=== PATIENT | male | born 1945 | race Caucasian/White ===

== ENCOUNTER 2020-02-04 08:04 | Emergency (ER) | payer MEDICARE, OTHER ==
[2020-02-04 08:16] VITALS: BP 147/85
--- NOTE | 2020-02-04 08:19 | ED Physician Documentation ---
PD HPI URI - Stated complaint Stated Complaint: SOA/COUGH - Chief complaint Chief Complaint: Heent - History obtained from History obtained from: Patient - History of Present Illness Timing - onset: How many days ago (10) Timing duration: Days (10) Timing details: Gradual onset, Still present Associated symptoms: Nasal congestion, Rhinorrhea, Productive cough. No: Fever, Chills Contributing factors: Other (Visiting from [place] the patient is staying with his son who is in the here. He states that he is really gone out at any restaurants in the past 2 weeks 3 weeks ago he did go to a home show in [place]. He has not had fever with this.) Improves by: Rest, Medication Worsened by: Activity Similar symptoms before: Diagnosis (bronchitis) Recently seen: Not recently seen - Additional information Additional information: 74-year-old male visiting from [place] has developed a cough and congestion and he usually takes an antibiotic when this happens and improves. He states that usually does take antibiotic to resolve this. He does have some mild muffled hearing. Review of Systems Constitutional: denies: Fever, Chills, Myalgias Eyes: denies: Decreased vision Ears: reports: Loss of hearing. denies: Ear pain Nose: reports: Rhinorrhea / runny nose, Congestion Throat: denies: Sore throat Cardiac: denies: Chest pain / pressure, Palpitations Respiratory: reports: Dyspnea, Cough GI: denies: Vomiting, Diarrhea PD PAST MEDICAL HISTORY - Present Medications Home Medications: Ambulatory Orders Medication Instructions Recorded Confirmed Azithromycin [Zithromax] 250 mg PO DAILY #6 tablet 02/04/20 - Allergies Allergies/Adverse Reactions: Allergies Allergy/AdvReac Type Severity Reaction Status Date / Time No Known Drug Allergies Allergy Verified 02/04/20 08:13 PD ED PE NORMAL - Vitals Vital signs reviewed: Yes (hypertensive ) - General General: Alert and oriented X 3, No acute distress, Well developed/nourished, Other (wearing a cough mask) - HEENT HEENT: Atraumatic, PERRL, EOMI, Moist mucous membranes, Pharynx benign, Other (both TM's are inflamed along the umbo with rounding of the umbo) - Neck Neck: Supple, no meningeal sign, No bony TTP, No JVD - Cardiac Cardiac: RRR, No murmur - Respiratory Respiratory: No respiratory distress, Clear bilaterally - Abdomen Abdomen: Soft, Non tender - Back Back: No CVA TTP, No spinal TTP - Derm Derm: Normal color, Warm and dry, No rash - Extremities Extremities: No deformity, No edema, No calf tenderness / cord - Neuro Neuro: Alert and oriented X 3, public relations professional 2-12 intact, No motor deficit, No sensory deficit, Normal speech Eye Opening: Spontaneous Motor: Obeys Commands Verbal: Oriented GCS Score: 15 - Psych Psych: Normal mood, Normal affect Results - Vitals Vitals: Vital Signs - 24 hr 02/04/20 08:13 Temperature 37.2 C Heart Rate 66 Respiratory 17 Rate Blood Pressure 147/85 H O2 Saturation 97 Oxygen O2 Source Room air PD MEDICAL DECISION MAKING - ED course Complexity details: considered differential, d/w patient ED course: 74-year-old male visiting from [place] with a cough and congestion has mild illness he does have otitis on examination with some muffled hearing as well. He is administered dexamethasone 10 mg orally we will place him on some azithromycin. We are expecting resolution. I did not think that this patient had coronavirus based on lack of hypoxia and fever. Lung exam was unremarkable. He did have alternative diagnosis to explain his symptoms. Departure - Departure Disposition: 01 Home, Self Care Clinical Impression: Otitis media Qualifiers: Otitis media type: suppurative Chronicity: acute Laterality: bilateral Recurrence: non-recurrent Spontaneous tympanic membrane rupture: without spontaneous rupture Qualified Code(s): H66.003 - Acute suppurative otitis media without spontaneous rupture of ear drum, bilateral Instructions: ED Otitis Media Acute Adult Follow-Up: Your, doctor [Other] Prescriptions: Azithromycin [Zithromax] 250 mg PO DAILY #6 tablet
[2020-02-04] MEDS ORDERED: CHERRY SYRUP 10 ML UDC PO ONE (08:27)
[2020-02-04] MEDS ORDERED: DEXAMETHASONE 10 MG/ML VIAL PO STA (08:27)
== END 2020-02-04 08:45 | disposition home or self-care (01) ==
LOC: ED 08:04
DX: H66.003 Acute suppurative otitis media without spontaneous rupture of ear drum, bilateral (principal)
CPT/HCPCS: 99282; 99284; A9270

== ENCOUNTER 2020-02-10 16:22 | Emergency (ER) | payer MEDICARE, OTHER ==
[2020-02-10 16:47] LABS: BILIRUBIN,URINE NEGATIVE (NEGATIVE); CLARITY,URINE CLEAR (CLEAR); GLUCOSE, URINE (UA) >=1000 mg/dL (NEGATIVE); KETONES,URINE (UA) NEGATIVE (NEGATIVE); LEUKOCYTE ESTERASE, URINE NEGATIVE (NEGATIVE); NITRITE,URINE NEGATIVE (NEGATIVE); OCCULT BLOOD,URINE MODERATE (NEGATIVE); PROTEIN,URINE NEGATIVE (NEGATIVE); UROBILINOGEN,URINE 0.2 (NORMAL) E.U./dL (NORMAL)
--- NOTE | 2020-02-10 16:49 | ED Physician Documentation ---
PD HPI MALE - Stated complaint Stated Complaint: MALE - Chief complaint Chief Complaint: UTI - History obtained from History obtained from: Patient - History of Present Illness Timing - onset: How many days ago (3) Timing - duration: Days (3) Associated symptoms: Hematuria, Abdominal pain ("Discomfort"). No: Dysuria, Urinary frequency, Unable to urinate, Discharge, Scrotal swelling Similar symptoms before: Has not had sx before Recently seen: Emergency Dept - Additional information Additional information: This is a 74-year-old man who presents with complaints that he was seen last week for cough was given a prescription for antibiotics the cough cleared up but then 2 mornings ago he got up out of bed and urinated and a large red clot passed into the toilet. There was not any pain associated with it and he did not see it happen again through the remainder of the day than yesterday morning the same thing happened and then again this morning he passed another blood clot in the urine. He said that he was planning to drive back home to the [facility] but is a 2-[address] and he was concerned to get stuck somewhere in route with problems with the urination. He did not have any discomfort to pee but he is got a little bit of discomfort in his lower abdomen. No back pain. Denies history of prostate issues or any history of kidney stones. He is never had similar symptoms. Denies nausea vomiting or diarrhea. No fever. He is a diabetic blood sugar was 135 1 or 2 weeks ago he has not tested it since then. He does feel like he has a yeast infection he is not circumcised and its, irritated under the foreskin. He has been treated in the past for yeast infection after antibiotics with initially topical treatment but required Diflucan. Review of Systems Constitutional: denies: Fever Respiratory: reports: Cough (Resolved) GI: denies: Nausea, Vomiting, Diarrhea : reports: Hematuria, Other (Foreskin inflammation and tenderness). denies: Dysuria Skin: reports: Rash (Of the foreskin) PD PAST MEDICAL HISTORY - Past Medical History Past Medical History: No - Past Surgical History Past Surgical History: No - Present Medications Home Medications: Ambulatory Orders Medication Instructions Recorded Confirmed Azithromycin [Zithromax] 250 mg PO DAILY #6 tablet 02/04/20 Fluconazole [Diflucan] 150 mg PO DAILY #2 tablet 02/10/20 Miconazole Cream [Remedy 0.5 inch TOP BID 5 Days #1 tube 02/10/20 Antifungal] - Allergies Allergies/Adverse Reactions: Allergies Allergy/AdvReac Type Severity Reaction Status Date / Time No Known Drug Allergies Allergy Verified 02/04/20 08:13 - Social History Does the pt smoke?: No Smoking Status: Never smoker Does the pt drink ETOH?: No Does the pt have substance abuse?: No - Immunizations Immunizations are current?: Yes - POLST Patient has POLST: No PD ED PE NORMAL - Vitals Vital signs reviewed: Yes - General General: Alert and oriented X 3, No acute distress, Well developed/nourished, Other (Pleasant, obese 74-year-old man is not in acute distress.) - HEENT HEENT: Atraumatic - Cardiac Cardiac: RRR - Respiratory Respiratory: No respiratory distress - Abdomen Abdomen: Normal bowel sounds, Soft, Non tender - Male Male : Other (Uncircumcised male genitalia. The foreskin is inflamed and the glans is inflamed with some cottage cheesy discharge in a scant amount.) Results - Vitals Vitals: Vital Signs - 24 hr 02/10/20 16:30 Temperature 36.7 C Heart Rate 60 Respiratory 18 Rate Blood Pressure 153/83 H O2 Saturation 95 Oxygen O2 Source Room air - Labs Labs: Laboratory Tests 02/10/20 16:35 Urine Color YELLOW Urine Clarity CLEAR Urine pH 6.0 Ur Specific Ewing 1.015 Urine Protein NEGATIVE Urine Glucose (UA) >=1000 H Urine Ketones NEGATIVE Urine Occult Blood MODERATE H Urine Nitrite NEGATIVE Urine Bilirubin NEGATIVE Urine Urobilinogen 0.2 (NORMAL) Ur Leukocyte Esterase NEGATIVE Urine RBC 0-5 Urine WBC 0-3 Ur Squamous Epith Cells NONE SEEN Urine Bacteria None Seen Ur Microscopic Review INDICATED Urine Culture Comments NOT INDICATED PD MEDICAL DECISION MAKING - ED course Complexity details: reviewed results, d/w patient ED course: Urinalysis showed positive for blood but no sign of infection. He had high glucose. Results were discussed with him. I do not see need for further antibiotics but he is given a miconazole cream as well as Diflucan 2 tablets. He has been taking a baby aspirin daily just as a general preventative. He has a history of A. fib but when and was on warfarin but had an ablation and has been off the warfarin for 5 years. Think he should stop the aspirin now until he follows up with his primary care provider on this week. He should make sure there is drinking a lot of soap water to keep the bladder flushed out try and prevent a blood clot from creating a urinary outlet obstruction. He states understanding and if he develops pain and unable to pee he will stop in emergency department for K[facility]ger catheter placement. His questions were answered and he was discharged in good condition. Departure - Departure Disposition: Home, Self Care Clinical Impression: Marine albicans infection Hematuria Qualifiers: Hematuria type: unspecified type Qualified Code(s): R31.9 - Hematuria, unspecified Condition: Good Instructions: ED Candidiasis Cutaneous, ED Hematuria Follow-Up: your,doctor [Other] Prescriptions: Fluconazole [Diflucan] 150 mg PO DAILY #2 tablet Miconazole Cream [Remedy Antifungal] 0.5 inch TOP BID 5 Days #1 tube Comments: Use the miconazole cream twice a day around the foreskin for comfort. Take the Diflucan 1 tablet daily for 2 days. You do have blood in the urine but no sign of urinary tract infection that would warrant further antibiotics at this time. Make sure that you are drinking plenty of water. Keep the appointment you have scheduled with your primary care provider later this week to discuss further work-up for the blood that is in the urine. Go to an emergency department if you find yourself unable to urinate, having increasing abdominal pain, fever or other problems arise.
[2020-02-10 16:55] LABS: BACTERIA,URINE None Seen /HPF (None Seen); RBC,URINE 0-5 /HPF (0-5); SQUAMOUS EPITHELIAL CELL,UR NONE SEEN (<= Few)
[2020-02-10 17:55] VITALS: BP 148/80
== END 2020-02-10 17:53 | disposition home or self-care (01) ==
LOC: ED 16:22
DX: B37.49 Other urogenital candidiasis (principal); R31.9 Hematuria, unspecified; E11.65 Type 2 diabetes mellitus with hyperglycemia
CPT/HCPCS: 81001; 81003; 87086; 99283; 99284

== ENCOUNTER 2024-02-14 15:33 | Emergency (ER) | payer MEDICARE, OTHER ==
--- NOTE | 2024-02-14 15:58 | ED Physician Documentation ---
PD HPI DYSPNEA - Stated complaint Stated Complaint: COUGH,CHEST PX - Chief complaint Chief Complaint: Resp - History obtained from History obtained from: Patient - Additional information Additional information: He is visiting from [place] has had a cough productive of yellow sputum for a week. No fevers or chills. He is modestly short of breath with it. He is a vague historian regarding his past medical history. For example when I asked him if he has any health problems he says he is totally healthy, subsequently tells me that he saw disposal worker for something. We were able to drill down and ascertain that he has had a ablation for A-fib but is not on a blood thinner. PD PAST MEDICAL HISTORY - Past Surgical History Past Surgical History: No - Present Medications Home Medications: Ambulatory Orders Medication Instructions Recorded Confirmed Azithromycin [Zithromax] 250 mg PO DAILY #6 tablet 02/04/20 Fluconazole [Diflucan] 150 mg PO DAILY #2 tablet 02/10/20 Miconazole Cream [Remedy 0.5 inch TOP BID 5 Days #1 tube 02/10/20 Antifungal] Albuterol Sulf [Ventolin Hfa 1 - 2 puffs INH Q4HR PRN #1 each 02/14/24 Inhaler] Amoxicillin 2 tab PO TID #30 cap 02/14/24 Benzonatate [Tessalon] 200 mg PO TID PRN #20 cap 02/14/24 guaiFENesin/CODEINE [Robitussin AC] 5 - 10 ml PO Q6H PRN #120 ml 02/14/24 - Allergies Allergies/Adverse Reactions: Allergies Allergy/AdvReac Type Severity Reaction Status Date / Time No Known Drug Allergies Allergy Verified 02/14/24 15:46 - Social History Does the pt smoke?: No Smoking Status: Never smoker Does the pt drink ETOH?: No Does the pt have substance abuse?: No - Immunizations Immunizations are current?: Yes - POLST Patient has POLST: No PD ED PE NORMAL - Vitals Vital signs reviewed: Yes - General General: Alert and oriented X 3, No acute distress - Cardiac Cardiac: RRR, No murmur - Respiratory Respiratory: No respiratory distress, Other (Mildly wheezy and diminished throughout with some rhonchi at the right base.) - Abdomen Abdomen: Normal bowel sounds, Soft - Neuro Neuro: Alert and oriented X 3, Normal speech - Psych Psych: Normal mood, Normal affect Results - Vitals Vitals: Vital Signs - 24 hr 02/14/24 02/14/24 15:38 15:55 Temperature 36.6 C 36.5 C Heart Rate 54 L 86 Respiratory 17 18 Rate Blood Pressure 140/64 H 132/84 H O2 Saturation 97 96 Oxygen O2 Source Room air - Labs Labs: Laboratory Tests 02/14/24 15:40 Nasal Adenovirus (PCR) NOT DETECTED Nasal B. parapertussis DNA (PCR) NOT DETECTED Nasal Coronavir 229E PCR NOT DETECTED Nasal Coronavir HKU1 PCR NOT DETECTED Nasal Coronavir NL63 PCR NOT DETECTED Nasal Coronavir OC43 PCR NOT DETECTED Nasal Enterovir/Rhinovir PCR NOT DETECTED Nasal Influenza B PCR NOT DETECTED Nasal Influenza A PCR NOT DETECTED Nasal Parainfluen 1 PCR NOT DETECTED Nasal Parainfluen 2 PCR NOT DETECTED Nasal Parainfluen 3 PCR NOT DETECTED Nasal Parainfluen 4 PCR NOT DETECTED Nasal RSV (PCR) NOT DETECTED Nasal B.pertussis DNA PCR NOT DETECTED Nasal C.pneumoniae (PCR) NOT DETECTED Bryan Human Metapneumo PCR NOT DETECTED Nasal M.pneumoniae (PCR) NOT DETECTED Nasal SARS-CoV-2 (PCR) NOT DETECTED - Rads (name of study) Formal read of x-ray concerning for early right-sided pneumonia. Relevant Findings:: Final report received, EMP independent interpretation of test PD Medical Decision Making - ED course ED course: X-ray to me looking okay other than broken ribs. That was from a fall on a rock a few years ago. That said he may have a mild clinical pneumonia with some right basilar rhonchi and will treat with antibiotics. Otherwise appears well with unremarkable vital signs. Departure - Departure Disposition: 01 Home, Self Care Clinical Impression: Pneumonia Condition: Good Record reviewed to determine appropriate education?: Yes Instructions: ED Upper Resp Infec Abx Tx Prescriptions: Albuterol Sulf [Ventolin Hfa Inhaler] 1 - 2 puffs INH Q4HR PRN #1 each PRN Reason: Shortness Of Air/Wheezing Amoxicillin 2 tab PO TID #30 cap guaiFENesin/CODEINE [Robitussin AC] 5 - 10 ml PO Q6H PRN #120 ml PRN Reason: Cough Benzonatate [Tessalon] 200 mg PO TID PRN #20 cap PRN Reason: Cough Comments: I sent your prescriptions electronically to [facility] [place]. I did not see anything on the x-ray other than the old broken ribs from the accident in [place] a few years ago. Call your doctor to arrange a follow-up appointment, make the next available appointment. In the interim, return anytime if worse or if new symptoms develop. Forms: PCP List Discharge Date/Time: 02/14/24 15:52
[2024-02-14 16:12] VITALS: BP 132/84; O2SAT 96
--- NOTE | 2024-02-14 16:39 | XRAY Report ---
PROCEDURE: Chest 1V INDICATIONS: chest pain TECHNIQUE: One view of the chest was acquired. COMPARISON: None. FINDINGS: Surgical changes and devices: None. Lungs and pleura: Minimal appearance of increased interstitial opacity within the right lung. Mediastinum: Mediastinal contours appear normal. Heart size is normal. Bones and chest wall: No suspicious bony lesions. Overlying soft tissues appear unremarkable. IMPRESSION: Mild increased right interstitial opacity suggestive of developing pneumonia. Reviewed by: Elvira Granados MD on 02/14/2024 4:38 PM PDT Approved by: Elvira Granados MD on 02/14/2024 4:38 PM PDT Station ID: [id number]
[2024-02-14 16:49] LABS: B. PARAPERTUSSIS- RESP PCR PAN NOT DETECTED; B. PERTUSSIS- RESP PCR PANEL NOT DETECTED; C. PNEUMONIAE- RESP PCR PANEL NOT DETECTED; CORONAVIRUS 229E-RESP PCR NOT DETECTED; CORONAVIRUS HKU1-RESP PCR NOT DETECTED; CORONAVIRUS NL63-RESP PCR NOT DETECTED; CORONAVIRUS OC43-RESP PCR NOT DETECTED; HUMAN METAPNEUMOVIRUS NOT DETECTED; INFLUENZA A- RESP PCR PANEL NOT DETECTED; INFLUENZA B - RESP PCR PANEL NOT DETECTED; M. PNEUMONIAE- RESP PCR PANEL NOT DETECTED; PARAINFLUENZA VIRUS 1 NOT DETECTED; PARAINFLUENZA VIRUS 2 NOT DETECTED; PARAINFLUENZA VIRUS 3 NOT DETECTED; PARAINFLUENZA VIRUS 4 NOT DETECTED; RHINOVIRUS/ENTEROVIRUS NOT DETECTED; RSV- RESP PCR PANEL NOT DETECTED; SARS-CoV-2 -RESP PCR PANEL NOT DETECTED
== END 2024-02-14 15:52 | disposition home or self-care (01) ==
LOC: ED 15:33
DX: J18.9 Pneumonia, unspecified organism (principal); Z11.52 Encounter for screening for COVID-19
CPT/HCPCS: 87633; 99284